=== PATIENT | female | born 1965 | race Asian ===

== ENCOUNTER → 2018-02-01 08:11 | Outpatient (CLI) | payer OTHER, SELFPAY ==
[2018-02-01 08:53] LABS: Alanine Aminotransferase 22 IU/L (9-52); Albumin 4.5 g/dL (3.5-5.0); Albumin Globulin Ratio 1.6 (1.0-2.8); Alkaline Phosphatase 93 U/L (38-126); Aspartate Aminotransferase 19 IU/L (14-36); BUN Creatinine Ratio 21.4 (6-22); Bilirubin Total 0.4 mg/dL (0.2-1.3); Blood Urea Nitrogen 15 mg/dL (7-17); Calcium 9.3 mg/dL (8.4-10.2); Carbon Dioxide 26 mmol/L (22-32); Chloride 104 mmol/L (98-107); Cholesterol 159 mg/dL (140-199); Estimated Glomerular Filt Rate > 60.0 mL/min (>60); Globulin 2.9 g/dL (1.7-4.1); Glucose 87 mg/dL (70-100); HDL Cholesterol 70 mg/dL (40-60); HEMOLYSIS < 15 (0-50); LDL Cholesterol Calculated 72 mg/dL (<100); Potassium 3.2 mmol/L (3.4-5.1); Sodium 144 mmol/L (137-145); Total Protein 7.4 g/dL (6.3-8.2); Triglycerides 87 mg/dL (35-150)
[2018-02-03 13:41] LABS: Fecal Immunochemical Test NOT DETECTED
== END ==
PROVIDERS: PCP Physician Assistant; Visit Provider Physician Assistant
DX: Z12.11 Encounter for screening for malignant neoplasm of colon (principal); Z00.00 Encounter for general adult medical examination without abnormal findings; Z13.1 Encounter for screening for diabetes mellitus; Z13.220 Encounter for screening for lipoid disorders; Z13.6 Encounter for screening for cardiovascular disorders
CPT/HCPCS: 36415; 80053; 80061; 82274

== ENCOUNTER → 2019-05-17 13:53 | Outpatient (CLI) | payer OTHER, SELFPAY ==
--- NOTE | 2019-05-17 13:57 | DI.RAD.S_ITS ---
PROCEDURE: XR HIP W PEL IF DONE LT 2V INDICATIONS: Left hip pain TECHNIQUE: AP pelvis with lateral view(s) of the left hip(s). COMPARISON: None. FINDINGS: Bones: No fractures or dislocations. Pelvic ring appears intact. No suspicious bony lesions. There is slight narrowing of the hip joint interspace symmetric bilaterally Soft tissues: The visualized bowel gas pattern is normal. No suspicious soft tissue calcifications. IMPRESSION: Slight bilateral symmetric hip joint osteoarthritis, no trauma found. Dictated by: Tarun Laboy M.D. on 05/17/2019 at 14:49 Approved by: Tarun Laboy M.D. on 05/17/2019 at 14:50
--- NOTE | 2019-05-17 13:57 | DI.RAD.S_ITS ---
PROCEDURE: XR LUMBAR SPINE 2-3V INDICATIONS: Low back pain with radiculopathy left side TECHNIQUE: 3 views of the lumbar spine were acquired. COMPARISON: None. FINDINGS: Bones: 5 [id number] vertebrae are present. There is normal bony alignment. No vertebral body compression fractures. No suspicious bony lesions. Soft tissues: Overlying bowel gas pattern is normal. No suspicious soft tissue calcifications. IMPRESSION: No significant degenerative disc disease, no area of significant facet hyperostosis. A definite source of left-sided radiculopathy is not found. Followup by MR scanning may be warranted given the symptomatology reported. Dictated by: Tarun Laboy M.D. on 05/17/2019 at 14:50 Approved by: Tarun Laboy M.D. on 05/17/2019 at 14:51
--- NOTE | 2019-05-17 13:57 | DI.MRI.S_ITS ---
PROCEDURE: MR LUMBAR SPINE WO CON INDICATIONS: Low back pain with radiculopathy left side TECHNIQUE: Noncontrast sagittal T1 spin echo and T2 fast echo, sagittal STIR, axial T1 and T2 fast spin echo through the lumbar spine. In cases with scoliosis, additional coronal T2 fast spin echo may be performed. COMPARISON: None. FINDINGS: Image quality: Excellent. Alignment and Curvature: There is normal bony alignment. Bone Marrow: Marrow is of normal overall signal. No acute vertebral body compression fractures. Spinal Cord: Conus medullaris terminates at the L1 level. Visualized cord demonstrates normal signal and size. Paraspinous Soft Tissues: No paravertebral masses. L1-L2: Normal appearance. L2-L3: Normal appearance. L3-L4: Normal appearance. L4-L5: Normal appearance except for a slight degree of degenerative disc desiccation and a minimal posterior disc bulge at the midline, without associated spinal or foraminal stenosis. Facet osteoarthritis at this level is minimal and does not produce foraminal stenosis. L5-S1: A similar slight degree of disc desiccation is present, no disc bulge is found. Facet osteoarthritis is minimal, also without significant foraminal stenosis.. IMPRESSION: Minimal degenerative disc disease is present comprised of a small degree of disc desiccation at L4-5 and L5-S1. No disc bulge or herniation producing nerve root impingement is found. A source of left-sided symptomatology is not seen. Dictated by: Tarun Laboy M.D. on 05/17/2019 at 17:12 Approved by: Tarun Laboy M.D. on 05/17/2019 at 17:16
== END ==
PROVIDERS: Family Provider Physician Assistant; PCP Physician Assistant; Referring Provider Physician Assistant; Visit Provider Physician Assistant
DX: M25.552 Pain in left hip (principal); M54.16 Radiculopathy, lumbar region; M54.5 Low back pain
CPT/HCPCS: 72100; 72148; 73502

== ENCOUNTER → 2019-12-19 10:41 | Outpatient (CLI) | payer OTHER, SELFPAY ==
[2019-12-19 11:41] LABS: Appearance Urine UA CLEAR; Bilirubin Urine UA NEGATIVE (NEGATIVE); Color Urine UA YELLOW; Glucose Urine UA NEGATIVE (Negative); Ketones Urine UA NEGATIVE (NEGATIVE); Leukocyte Esterase Urine UA NEGATIVE (NEGATIVE); Nitrite Urine UA NEGATIVE (Negative); Occult Blood Urine UA NEGATIVE (Negative); Protein Urine UA NEGATIVE (Negative); Specific Gravity Urine UA <=1.005 (1.000-1.035); Urobilinogen Urine UA 0.2 E.U./dL (0.2)
[2019-12-19 11:43] LABS: Add Manual Diff / Slide Review NO; Basophils Absolute Auto 100 /uL (0-100); Basophils Percent Auto 0.9 % (0-2); Eosinophils Absolute Auto 100 /uL (0-450); Eosinophils Percent Auto 0.8 % (2-4); Hematocrit 40.3 % (36-46); Hemoglobin 13.8 g/dL (12.0-16.0); Lymphocytes Absolute Auto 1400 /uL (1100-4500); Lymphocytes Percent Auto 20.8 % (25-40); Mean Corpuscular HGB Conc 34.3 % (30-36); Mean Corpuscular Hemoglobin 31.7 PG (26-34); Mean Corpuscular Volume 92.3 fL (80-100); Monocytes Absolute Auto 300 /uL (0-900); Monocytes Percent Auto 4.2 % (3-14); Neutrophils Absolute Auto 5000 /uL (1500-7000); Neutrophils Percent Auto 73.3 % (50-75); Platelet Count 306 X10^3/uL (150-400); Red Blood Cell Count 4.37 X10^6/uL (4.0-5.2); Red Cell Distribution Width 12.8 % (11.6-14.8); White Blood Cell Count 6.8 X10^3/uL (4.5-11.0)
[2019-12-19 11:53] LABS: pH Urine UA 5.5 (4.5-8.0)
[2019-12-19 12:07] LABS: Alanine Aminotransferase 22 IU/L (<35); Albumin 4.5 g/dL (3.5-5.0); Albumin Globulin Ratio 1.4 (1.0-2.8); Alkaline Phosphatase 112 U/L (38-126); Aspartate Aminotransferase 29 IU/L (14-36); BUN Creatinine Ratio 14.7 (6-22); Bilirubin Total 0.7 mg/dL (0.2-1.3); Blood Urea Nitrogen 11 mg/dL (7-17); Calcium 9.4 mg/dL (8.4-10.2); Carbon Dioxide 28 mmol/L (22-32); Chloride 106 mmol/L (98-107); Cholesterol 169 mg/dL (140-199); Estimated Glomerular Filt Rate > 60.0 mL/min (>60); Globulin 3.2 g/dL (1.7-4.1); Glucose 98 mg/dL (70-100); HDL Cholesterol 61 mg/dL (40-60); HEMOLYSIS < 15 (0-50); LDL Cholesterol Calculated 86 mg/dL (<100); Potassium 4.2 mmol/L (3.4-5.1); Sodium 142 mmol/L (137-145); Total Protein 7.7 g/dL (6.3-8.2); Triglycerides 109 mg/dL (35-150)
== END ==
PROVIDERS: Family Provider Physician Assistant; PCP Registered Nurse; Referring Provider Registered Nurse; Visit Provider Registered Nurse
DX: Z00.00 Encounter for general adult medical examination without abnormal findings (principal)
CPT/HCPCS: 36415; 80053; 80061; 81003; 85025

== ENCOUNTER → 2019-12-28 10:21 | Outpatient (CLI) | payer OTHER, SELFPAY ==
[2019-12-29 15:11] LABS: Fecal Immunochemical Test Negative (Negative)
== END ==
PROVIDERS: Family Provider Physician Assistant; PCP Registered Nurse; Referring Provider Registered Nurse; Visit Provider Registered Nurse
DX: Z12.11 Encounter for screening for malignant neoplasm of colon (principal)
CPT/HCPCS: 82274

== ENCOUNTER → 2022-03-12 10:57 | Outpatient (CLI) | payer OTHER, SELFPAY ==
[2022-03-12 13:03] LABS: Influenza A - CEPHEID Flu A POSITIVE (NEGATIVE); Influenza B - CEPHEID Flu B NEGATIVE (NEGATIVE); Respiratory Syncytial Virus Negative (Negative)
[2022-03-12 13:15] LABS: COVID-19 CEPHEID 4-PLEX PCR Negative (Negative)
== END ==
PROVIDERS: Family Provider Physician Assistant; Visit Provider Nurse Practitioner Family
DX: J06.9 Acute upper respiratory infection, unspecified (principal); Z20.822 Contact with and (suspected) exposure to COVID-19
CPT/HCPCS: 0241U

== ENCOUNTER 2022-03-13 11:25 | Emergency (ER) | payer OTHER, SELFPAY ==
[2022-03-13 11:30] VITALS: BP 171/89; PULSE 92; RESP 20; TEMP 37.4; O2SAT 100; BMI 19.9
--- NOTE | 2022-03-13 11:34 | DI.RAD.S_ITS ---
PROCEDURE: XR CHEST 2V INDICATIONS: flu TECHNIQUE: 2 views of the chest were acquired. COMPARISON: None. FINDINGS: Surgical changes and devices: None. Lungs and pleura: Lungs are clear. No pleural effusions or pneumothorax. Mediastinum: Mediastinal contours are normal. Heart size is normal. Bones and chest wall: No suspicious bony abnormalities. Soft tissues appear unremarkable. IMPRESSION: No evidence acute pulmonary process. Dictated by: Freddy Jackson M.D. on 03/13/2022 at 12:35 Approved by: Freddy Jackson M.D. on 03/13/2022 at 12:35
[2022-03-13 12:59] VITALS: BMI 19.9
--- NOTE | 2022-03-13 13:01 | ED_ITS ---
HPI - URI/Sore Throat General Chief Complaint: Upper Respiratory Symptoms Stated Complaint: cough/sore throat/ influenza+ not getting better Time Seen by Provider: 03/13/22 12:06 Source: patient Mode of arrival: Ambulatory History of Present Illness HPI Narrative: Presenting with recently diagnosed influenza infection and persistent symptoms. Patient reports that she was initially diagnosed with coronavirus approximately 1 week prior to presentation, has persistent cough, congestion, sore throat, intermittent shortness of breath. Patient denies significant change in symptoms, reports symptoms have been persistent. Patient does not have regular fevers. Continues to tolerate oral intake without difficulty. Related Data Home Medications Medication Instructions Recorded Confirmed vitamin D3 94.38 mcg (3,775 1,000 iu PO QDAY ##0 10/28/15 02/08/20 unit)-folic acid 1 mg capsule (Ciferex) Aspirin 81 mg See Rx Instructions .Route .COMPLEX 01/31/18 02/08/20 calcium carbonate 500 mg calcium 500 mg PO DAILY 12/19/19 02/08/20 (1,250 mg) tablet (Calcium 500) Previous Rx's Medication Instructions Recorded sumatriptan succinate 50 mg tablet 50 - 100 mg PO PRN PRN #9 tabs 11/19/16 albuterol sulfate 90 mcg/actuation 2 puff inhalation Q4-6H #1 inh 01/26/18 aerosol inhaler (Proventil HFA) fluticasone propionate 115 1 puff inhalation BID #12 grams 01/26/18 mcg-salmeterol 21 mcg/actuation HFA inhaler (Advair HFA) beclomethasone dipropionate 80 1 puff inhalation BID #10.6 grams 02/01/18 mcg/actuation HFA breath activated aerosol budesonide 0.5 mg/2 mL suspension 0.5 mg (2 mL) inhalation BID #180 02/21/18 for nebulization mL ipratropium 0.5 mg-albuterol 3 mg 3 ml inhalation QID #180 mL 02/21/18 (2.5 mg base)/3 mL nebulization soln hydrocortisone 1 % topical ointment 1 applictn topical BID 2 weeks #56 12/19/19 grams trazodone 300 mg tablet 50 mg PO BEDTIME Insomnia 30 days 12/19/19 #5.001 tabs cetirizine 10 mg capsule (Zyrtec) 10 mg PO DAILY allergies #30 caps 02/08/20 Allergies Allergy/AdvReac Type Severity Reaction Status Date / Time gluten Allergy Verified 03/13/22 11:34 lactose Allergy Verified 03/13/22 11:34 amoxicillin [AMOXICILLIN] AdvReac Intermediate Nausea Verified 03/13/22 11:34 Headache Review of Systems Review of Systems Narrative: Constitutional, Eyes, ENT, Pulmonary, Cardiovascular, Gastrointestinal, Renal, Endocrine, Genitourinary, Musculoskeletal, Neurologic, Skin, and Psychiatric systems were reviewed and negative unless indicated in the HPI above. Patient History Medical History Chronic bronchitis COPD (chronic obstructive pulmonary disease) Degenerative arthritis of carpometacarpal joint of thumb (10/2012) Depression Migraines PTSD (post-traumatic stress disorder) Tendinitis of left hand (10/2012) Surgical History History of arthroplasty of finger of left hand (07/16/14) History of section History of tubal ligation Family History Father AK (myocardial infarction) Mother Asthma Brother Asthma Stroke Sister Asthma Family/Other No problems noted. Family/Other Asthma Family/Other Bronchitis Social History Smoking Status: Former smoker Tobacco: How many years used: 34 second hand exposure: Yes (yes, my is still smoking. ) alcohol intake: current substance use type: does not use Smoking Status: Former smoker alcohol intake frequency: 0-2 drinks per day Substance Use Type: does not use Exam Narrative Exam Narrative: Vitals reviewed. Nursing note reviewed Constitutional: interactive HENT: Moist mucous membranes EYES: No scleral icterus NECK: no masses CV: Well perfused peripherally, no cyanosis present PULM: Unlabored respirations, symmetric chest rise ABD: Non-distended MS: No gross deformities, no asymmetric edema noted SKIN: Warm and dry. PSYCH: Appropriate affect NEURO: Follows simple commands, moves extremities, interactive with exam Initial Vital Signs Initial Vital Signs: Vital Signs Temperature 99.4 F 03/13/22 11:30 Pulse Rate 92 H 03/13/22 11:30 Respiratory Rate 20 03/13/22 11:30 Blood Pressure 171/89 H 03/13/22 11:30 Pulse Oximetry 100 03/13/22 11:30 Oxygen Delivery Method 03/13/22 11:30 Course Orders Ordered: ED Orders 03/13/22 11:34 XR chest 2V Stat Vital Signs Vital signs: Vital Signs - 8 hr 03/13/22 11:30 Temperature 99.4 F Pulse Rate 92 H Respiratory Rate 20 Blood Pressure 171/89 H Pulse Oximetry 100 Oxygen Delivery Method Room Air MDM - URI/Sore Throat MDM Narrative Medical decision making narrative: 57-year-old female presenting with recently diagnosed influenza infection with persistent symptoms. Patient vital signs reassuring on presentation without oxy gen requirement or tachypnea. Physical exam on presentation notable for a well- appearing 57-year-old female in no acute distress, reassuring pulmonary and cardiac exam. Initial concern for postviral pneumonia, persistent symptoms in the setting of recently diagnosed influenza infection, electrolyte derangement, dehydration, occult sepsis. Chest x-ray without evidence of postviral pneumonia. Patient with reassuring bedside exam, no oxygen requirement, and patient continues to tolerate oral intake without difficulty arguing against postviral pneumonia. Patient without evidence on bedside exam of occult sepsis. Given patient continues to tolerate oral intake without difficulty, screening labs were deferred an electrolyte derangement versus dehydration seems unlikely. Discussed plan for supportive cares and patient was subsequently discharged with outpatient follow up instructions, return precautions discussed. Discharge Plan Departure Patient Disposition: Home Clinical Impression: Influenza A Instructions: DI for Influenza -- Adult Activity Restrictions/Additional Instructions: *You have been diagnosed with influenza a *What to do: *Please follow up with your primary care provider in 2-3 days, call for an appointment. Let them know you were seen in the Emergency Department and that we ask that you be seen in follow up. We will electronically transmit a record of today's note if your PCP is in our system *Return to Emergency Department if you should have any new, worsening or concerning symptoms, such as [fever greater than 101 F, shaking chills, worsening pain, persistent vomiting or other bothersome symptoms] Prescriptions: No Action fluticasone propion-salmeterol [Advair HFA] 115-21 mcg/actuation HFA aerosol inhaler 1 puff INHALATION BID Qty: 12 3RF Aspirin 81 mg See Rx Instructions .ROUTE .COMPLEX Label Comments: 1 TAB PO QDAY Rx Instructions: 1 TAB PO QDAY vitamin D3-folic acid [Ciferex] 3,775 UNITS/1 MG capsule 1,000 iu PO QDAY Qty: 0 sumatriptan succinate 50 MG tablet 50 - 100 mg PO PRN PRNQty: 9 3RF albuterol sulfate [Proventil HFA] 90 mcg/actuation HFA aerosol inhaler 2 puff INHALATION Q4-6H Qty: 1 0RF beclomethasone dipropionate 80 mcg/actuation HFA aerosol breath activated 1 puff INHALATION BID Qty: 10.6 3RF Rx Instructions: administer with spacer ipratropium-albuterol 0.5 mg-3 mg(2.5 mg base)/3 mL solution for nebulization 3 ml INHALATION QID Qty: 180 3RF budesonide 0.5 mg/2 mL suspension for nebulization 0.5 mg INHALATION BID Qty: 180 3RF Rx Instructions: Hold Advair inhaler when using Budesonide calcium carbonate [Calcium 500] 500 mg calcium (1,250 mg) tablet 500 mg PO DAILY hydrocortisone 1 % ointment 1 applictn TOP BID 14 Days Qty: 56 1RF trazodone 300 mg tablet 50 mg PO BEDTIME 30 Days Qty: 5.001 2RF Rx Instructions: to take 50 mg tab dose qhs for insomnia Zyrtec 10 mg capsule 10 mg PO DAILY Qty: 30 3RF Referrals: Miscellaneous,Doctor, MD [Primary Care Provider] - Visit Report Forms: Patient Portal/API
[2022-03-13 13:33] VITALS: BP 123/77; PULSE 86; RESP 18; O2SAT 98
--- NOTE | 2022-03-13 13:34 | PC.NURSE ---
Patient evaluated and discharged by provider prior to nursing assessment.
== END 2022-03-13 13:34 | disposition home or self-care (01) ==
PROVIDERS: Emergency Provider Emergency Medicine; Family Provider Physician Assistant
DX: J10.1 Influenza due to other identified influenza virus with other respiratory manifestations (principal); Z79.899 Other long term (current) drug therapy
CPT/HCPCS: 71046; 99283; 99284

== ENCOUNTER → 2022-04-17 12:01 | Outpatient (CLI) | payer OTHER, SELFPAY ==
[2022-04-17 14:31] LABS: Hep C Virus Ab w/Reflex Quant NEGATIVE s/c (NEGATIVE)
== END ==
PROVIDERS: Family Provider Physician Assistant; PCP Family Medicine; Referring Provider Family Medicine; Visit Provider Family Medicine
DX: Z11.59 Encounter for screening for other viral diseases (principal)
CPT/HCPCS: 36415; 86803

== ENCOUNTER → 2022-04-20 13:37 | Outpatient (CLI) | payer OTHER, SELFPAY ==
[2022-04-21 07:37] LABS: Fecal Immunochemical Test Negative (Negative)
== END ==
PROVIDERS: Family Provider Physician Assistant; PCP Family Medicine; Referring Provider Family Medicine; Visit Provider Family Medicine
DX: Z12.11 Encounter for screening for malignant neoplasm of colon (principal)
CPT/HCPCS: 82274

== ENCOUNTER 2024-07-11 11:13 | Outpatient (RCR) | payer OTHER, SELFPAY ==
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
== END 2024-07-18 09:42 | disposition home or self-care (01) ==
LOC: PHYS 11:13
PROVIDERS: Family Provider Family Medicine; PCP Family Medicine; Referring Provider Family Medicine; Visit Provider Family Medicine
DX: M54.50 Low back pain, unspecified (principal)
CPT/HCPCS: 97162; 97535

== ENCOUNTER → 2025-03-07 16:16 | Outpatient (CLI) | payer OTHER, SELFPAY ==
[2025-03-07 16:59] LABS: Add Manual Diff / Slide Review NO; Hematocrit 35.8 % (36-46); Hemoglobin 11.9 g/dL (12.0-16.0); Lymphocytes Absolute Auto 2000 /uL (1100-4500); Mean Corpuscular HGB Conc 33.3 % (30-36); Mean Corpuscular Hemoglobin 27.8 PG (26-34); Mean Corpuscular Volume 83.7 fL (80-100); Platelet Count 373 X10^3/uL (150-400)
[2025-03-07 17:17] LABS: Appearance Urine UA CLEAR; Bilirubin Urine UA NEGATIVE (NEGATIVE); Color Urine UA YELLOW; Glucose Urine UA NEGATIVE (Negative); Ketones Urine UA NEGATIVE (NEGATIVE); Leukocyte Esterase Urine UA NEGATIVE (NEGATIVE); Nitrite Urine UA NEGATIVE (Negative); Occult Blood Urine UA NEGATIVE (Negative); Protein Urine UA NEGATIVE (Negative); Specific Gravity Urine UA <=1.005 (1.000-1.035); Urobilinogen Urine UA 0.2 E.U./dL (0.2)
[2025-03-07 17:24] LABS: pH Urine UA 6.0 (4.5-8.0)
[2025-03-07 17:29] LABS: Culture Indicated Urine Cult Not Indicated
[2025-03-07 17:49] LABS: Alanine Aminotransferase 13 IU/L (<35); Albumin 4.7 g/dL (3.5-5.0); Albumin Globulin Ratio 1.7 (1.0-2.8); Alkaline Phosphatase 71 U/L (38-126); Blood Urea Nitrogen 21 mg/dL (7-17); Calcium 9.5 mg/dL (8.4-10.2); Carbon Dioxide 24 mmol/L (22-32); Chloride 103 mmol/L (98-107); Estimated Glomerular Filt Rate > 60 mL/min (>60); Globulin 2.8 g/dL (1.7-4.1); Glucose 87 mg/dL (70-99); HEMOLYSIS < 15 (0-50); Potassium 4.5 mmol/L (3.4-5.1); Sodium 139 mmol/L (137-145); Total Protein 7.5 g/dL (6.3-8.2)
[2025-03-07 18:20] LABS: TSH w/ Reflex to FT4 1.17 uIU/mL (0.47-4.68)
[2025-03-08 11:30] LABS: HEMOLYSIS 16 (0-50); Iron 71 ug/dL (37-170)
[2025-03-08 11:40] LABS: Percent Iron Saturation 17 % (15-50); Total Iron Binding Capacity 420 ug/dL (265-497); Transferrin 348 mg/dL (206-381)
[2025-03-08 12:06] LABS: Ferritin 8 ng/mL (11-264)
== END ==
PROVIDERS: Family Provider Family Medicine; PCP Family Medicine; Referring Provider Physician Assistant; Visit Provider Physician Assistant
DX: Z00.00 Encounter for general adult medical examination without abnormal findings (principal); R31.9 Hematuria, unspecified; R63.4 Abnormal weight loss; M15.9 Polyosteoarthritis, unspecified; N93.9 Abnormal uterine and vaginal bleeding, unspecified
CPT/HCPCS: 36415; 80053; 81001; 82728; 83540; 83550; 84443; 85025

== ENCOUNTER → 2025-03-13 08:28 | Outpatient (CLI) | payer OTHER, SELFPAY ==
--- NOTE | 2025-03-13 08:29 | DI.US.S_ITS ---
PROCEDURE: US PELVIC COMPLETE INDICATIONS: vaginal bleeding x 2 days TECHNIQUE: Real-time scanning was performed of the pelvic organs, with image documentation. Additional endovaginal scanning was necessary due to incomplete visualization of the adnexal and endometrial structures by transabdominal scanning. COMPARISON: None. FINDINGS: Uterus: 5.5 x 2.2 cm. Anteverted uterine positioning. Combined endometrial thickness is 3 mm within normal limits. Trace endometrial fluid is present. A subserosal (FIGO 5) fibroid is seen in the posterior uterus measuring 2 x 1.7 cm. Ovaries: Not visualized Other: No pathologic free fluid IMPRESSION: Endometrial combined thickness measures 3 mm, within normal limits. Trace endometrial fluid is present. FIGO 5 posterior 2 cm fibroid. Dictated by: Noel Wells M.D. on 03/13/2025 at 8:56 Approved by: oNel Wells M.D. on 03/13/2025 at 8:58
== END ==
LOC: US 08:29
PROVIDERS: Family Provider Family Medicine; PCP Family Medicine; Referring Provider Family Medicine; Visit Provider Physician Assistant
DX: N93.9 Abnormal uterine and vaginal bleeding, unspecified (principal); D25.2 Subserosal leiomyoma of uterus
CPT/HCPCS: 76830; 76856